=== PATIENT | female | born 1985 | race Caucasian/White ===

== ENCOUNTER 2021-04-01 14:58 | Emergency (ER) | payer MEDICARE, MEDICAID ==
[2021-04-01] MEDS ORDERED: Ondansetron 4 MG/2 ML SDV IVPUSH ONE (15:42)
[2021-04-01] MEDS ORDERED: Sodium Chloride 0.9% 1,000 ML IV STA (15:42)
[2021-04-01] MEDS ORDERED: Sodium Chloride 0.9% 10 ML Syringe FLUSH PRN (15:42)
[2021-04-01] MEDS ORDERED: LORazepam 2 MG/ML SDV IVPUSH ONE ×2 (15:43→17:20)
--- NOTE | 2021-04-01 16:28 | EDM.PDOC ---
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 She has not eaten any food for 4 days. She is drinking fluids just fine. She has a history of seizures and she has not had her medications for about 4 days. She takes gabapentin and carbamazapine. She is not vomiting. She just pushes it out of her mouth. She has no fever, cough, or diarrhea. She was checked at the walk in clinic for COVID today. Onset: Gradual Duration: Day(s): (4) Severity: Moderate Improves with: Reports: None Worsens with: Reports: None Associated Symptoms: Denies: Cough, Fever/Chills, Nausea/Vomiting, Shortness of Breath - Related Data Allergies Allergy/AdvReac Type Severity Reaction Status Date / Time No Known Allergies Allergy Verified 04/01/21 15:18 Home Meds: Home Meds Gabapentin [Neurontin] 400 g PO TID 04/01/21 [History] Ondansetron [Zofran ODT] 4 mg PO Q6H PRN #20 tab.dis 04/01/21 [Rx] carBAMazepine [Carbamazepine] 100 mg PO QID 04/01/21 [History] Past Medical History Neurological History: Reports: Seizure, Other (See Below) Other Neuro History: RETTS syndro - Infectious Disease History Infectious Disease History: Reports: None, Chicken Pox Social & Family History - Tobacco Use Tobacco Use Status *Q: Never Tobacco User - Caffeine Use Caffeine Use: Reports: Soda - Recreational Drug Use Recreational Drug Use: No ED ROS GENERAL - Review of Systems Review Of Systems: Unable To Obtain Reason Not Obtained: Patient does not talk ED EXAM, GENERAL - Physical Exam Exam: See Below Exam Limited By: Other (patient does not talk) General Appearance: Alert, No Apparent Distress Ears: Normal External Exam Nose: Normal Inspection Head: Atraumatic, Normocephalic Neck: Normal Inspection Respiratory/Chest: No Respiratory Distress, Lungs Clear, Normal Breath Sounds Cardiovascular: Regular Rate, Rhythm, No Edema, No Murmur GI/Abdominal: Soft, Non-Tender, No Organomegaly, No Mass Course - Vital Signs Last Recorded V/S: Last Vital Signs Temp 98.8 F 04/01/21 15:25 Pulse 95 04/01/21 15:25 Resp 24 H 04/01/21 15:25 BP 178/119 H 04/01/21 15:25 Pulse Ox 100 04/01/21 15:25 - Orders/Labs/Meds Orders: Active Orders 24 hr Category Date Time Status Peripheral IV Care [RC] . DIRECTED Care 04/01/21 15:42 Active Sodium Chloride 0.9% [Saline Flush] Med 04/01/21 15:42 Active 10 ml FLUSH ASDIRECTED PRN ED Antiemetic Medication Reflex [OM.PC] Stat Oth 04/01/21 15:42 Ordered Peripheral IV Insertion Adult [OM.PC] Stat Oth 04/01/21 15:42 Ordered Medication Orders Sodium Chloride (Sodium Chloride 0.9% 10 Ml Syringe) 10 ml FLUSH ASDIRECTED PRN PRN Reason: Keep Vein Open Last Admin: 04/01/21 16:06 Dose: 10 ml Documented by: CAROL Labs: Laboratory Tests 04/01/21 04/01/21 04/01/21 Range/Units 15:56 15:56 17:00 WBC 9.09 (3.98-10.04) K/mm3 RBC 5.17 (3.98-5.22) M/mm3 Hgb 15.2 (11.2-15.7) gm/dl Hct 44.2 (34.1-44.9) % MCV 85.5 D (79.4-94.8) fl MCH 29.4 (25.6-32.2) pg MCHC 34.4 (32.2-35.5) g/dl RDW Std Deviation 37.2 (36.4-46.3) fL Plt Count 400 H (182-369) K/mm3 MPV 8.7 L (9.4-12.3) fl Neut % (Auto) 74.1 H (34.0-71.1) % Lymph % (Auto) 17.7 L (19.3-51.7) % [place] % (Auto) 7.4 (4.7-12.5) % Eos % (Auto) 0 L (0.7-5.8) Baso % (Auto) 0.6 (0.1-1.2) % Neut # (Auto) 6.74 H (1.56-6.13) K/mm3 Lymph # (Auto) 1.61 (1.18-3.74) K/mm3 [place] # (Auto) 0.67 H (0.24-0.36) K/mm3 Eos # (Auto) 0.00 L (0.04-0.36) K/mm3 Baso # (Auto) 0.05 (0.01-0.08) K/mm3 Sodium 140 (136-145) mEq/L Potassium 3.9 (3.5-5.1) mEq/L Chloride 100 (98-107) mEq/L Carbon Dioxide 15 L (21-32) mEq/L Anion Gap 28.9 H (5-15) BUN 12 (7-18) mg/dL Creatinine 0.8 (0.55-1.02) mg/dL Est Cr Clr Drug Dosing 70.50 mL/min Estimated GFR (MDRD) > 60 (>60) mL/min BUN/Creatinine Ratio 15.0 (14-18) Glucose 79 (70-99) mg/dL Calcium 8.8 (8.5-10.1) mg/dL Magnesium 2.0 (1.8-2.4) mg/dL Total Bilirubin 0.8 (0.2-1.0) mg/dL AST 128 H (15-37) U/L ALT 191 H (14-59) U/L Alkaline Phosphatase 90 (46-116) U/L C-Reactive Protein <0.2 (<1.0) mg/dL Total Protein 9.0 H (6.4-8.2) g/dl Albumin 4.2 (3.4-5.0) g/dl Globulin 4.8 gm/dL Albumin/Globulin Ratio 0.9 L (1-2) Lipase 108 (73-393) U/L Urine Color Yellow (Yellow) Urine Appearance Clear (Clear) Urine pH 6.0 (5.0-8.0) Ur Specific [place] > or = 1.030 (1.005-1.030) Urine Protein 3+ H (Negative) Urine Glucose (UA) Negative (Negative) Urine Ketones 4+ H (Negative) Urine Occult Blood Trace-lysed H (Negative) Urine Nitrite Negative (Negative) Urine Bilirubin Negative (Negative) Urine Urobilinogen 0.2 (0.2-1.0) Ur Leukocyte Esterase Negative (Negative) U Hyaline Cast (Auto) 5-10 H (0-5) /lpf Urine RBC 0-5 (0-5) /hpf Urine WBC 0-5 (0-5) /hpf Ur Squamous Epith Cells 0-5 (0-5) /hpf Urine Bacteria Few (FEW) /hpf Urine Mucus Few (FEW) /hpf Meds: Medications Generic Name Dose Route Start Last Admin Trade Name Freq PRN Reason Stop Dose Admin Sodium Chloride 10 ml 04/01/21 15:42 04/01/21 16:06 Sodium Chloride 0.9% 10 Ml Syringe FLUSH 10 ml ASDIRECTED PRN Administration Keep Vein Open Discontinued Medications Generic Name Dose Route Start Last Admin Trade Name Freq PRN Reason Stop Dose Admin Sodium Chloride 1,000 mls @ 1,000 mls/hr 04/01/21 15:42 04/01/21 16:05 Normal Saline IV 04/01/21 16:41 1,000 mls/hr .BOLUS STA Administration Lorazepam 0.5 mg 04/01/21 15:43 04/01/21 16:03 Lorazepam 2 Mg/Ml Sdv IVPUSH 04/01/21 15:44 0.5 mg ONETIME ONE Administration Lorazepam 0.5 mg 04/01/21 17:20 04/01/21 17:25 Lorazepam 2 Mg/Ml Sdv IVPUSH 04/01/21 17:21 0.5 mg ONETIME ONE Administration Ondansetron HCl 4 mg 04/01/21 15:42 04/01/21 16:03 Ondansetron 4 Mg/2 Ml Sdv IVPUSH 04/01/21 15:43 4 mg ONETIME ONE Administration - Re-Assessments/Exams Free Text/Narrative Re-Assessment/Exam: 04/01/21 16:32 I ordered an IV NS 1L bolus, ativan 0.5mg IV, zofran 4mg IV, labs and UA. 04/01/21 18:51 Her WBC and Hgb are normal. Her platelets are elevated at 400. Her anion gap is elevated at 28.9. Her AST is elevated at 128. Her ALT is elevated at 191. He CRP is normal. Her UA shows no UTI. She feels better. I will send her home with some zofran and follow up with her provider. Departure - Departure Time of Disposition: 18:55 Disposition: Home, Self-Care 01 Condition: Good Clinical Impression: Dehydration - Discharge Information *PRESCRIPTION DRUG MONITORING PROGRAM REVIEWED*: Not Applicable *COPY OF PRESCRIPTION DRUG MONITORING REPORT IN PATIENT CLARITA: Not Applicable Prescriptions: Ondansetron [Zofran ODT] 4 mg PO Q6H PRN #20 tab.dis PRN Reason: Nausea\vomiting Referrals: Job Contreras MD [Primary Care Provider] - 1 Week Forms: ED Department Discharge Additional Instructions: Try the zofran every 6 hours as needed for nausea or if she is not eating. Keep pushing the fluids. Try different foods and see if she will eat. If she will not take her medications try calling her neurologist and see if there is some liquid options she can try. Follow up with Dr Contreras. Please return if you are worse. Sepsis Event Note (ED) - Focused Exam Vital Signs: Vital Signs Temp Pulse Resp BP Pulse Ox 04/01/21 15:25 98.8 F 95 24 H 178/119 H 100 - My Orders Last 24 Hours: My Active Orders 04/01/21 15:42 Peripheral IV Care [RC] . DIRECTED Sodium Chloride 0.9% [Saline Flush] 10 ml FLUSH ASDIRECTED PRN ED Antiemetic Medication Reflex [OM.PC] Stat Peripheral IV Insertion Adult [OM.PC] Stat - Assessment/Plan Last 24 Hours: My Active Orders 04/01/21 15:42 Peripheral IV Care [RC] . DIRECTED Sodium Chloride 0.9% [Saline Flush] 10 ml FLUSH ASDIRECTED PRN ED Antiemetic Medication Reflex [OM.PC] Stat Peripheral IV Insertion Adult [OM.PC] Stat
== END 2021-04-01 19:23 | disposition home or self-care (01) ==
LOC: JD.ED 14:58
DX: E86.0 Dehydration (principal)
CPT/HCPCS: 36415; 80053; 81001; 83690; 83735; 85025; 86140; 96374; 96375; 96376; 99283; J2060; J2405; J7030; 99284

== ENCOUNTER 2024-08-25 12:13 | Emergency (ER) | payer MEDICARE, MEDICAID ==
[2024-08-25] MEDS: Magnesium Citrate Solution 296 ML Bottle PO ONE (14:08)
== END 2024-08-25 14:05 | disposition home or self-care (01) ==
LOC: JD.ED 12:13
DX: K59.00 Constipation, unspecified (principal); Z79.899 Other long term (current) drug therapy
CPT/HCPCS: 74018; 99283; A9270; 99284